=== PATIENT | female | born 1995 | race Caucasian/White ===

== ENCOUNTER 2019-05-21 09:52 | Outpatient (RCR) | payer BC ==
[2019-05-19] MEDS: IRON SUCROSE 200 MG/10 ML (VENOFER) VIAL IV SCH (10:25)
[2019-05-19 10:29] VITALS: BP 106/70
[~2019-05-21] VITALS: Ht 162 cm; Wt 72.7 kg
[~2019-05-21 09:52] MED LIST: DOXY100C2 PO; ESCI20TA PO; ESCI20TA45 PO; ETHI1TAB21 PO; IBUP-30 PO; IRON SUCROSE 200 MG/10 ML (VENOFER) VIAL IV ONE; LURA20TA PO; [UNRECOGNIZED DRUG - OTHER] PO
[2019-05-21] MEDS: IRON SUCROSE 200 MG/10 ML (VENOFER) VIAL IV SCH (10:01)
[2019-05-21 10:40] VITALS: BP 107/69
== END 2019-05-21 10:40 | disposition home or self-care (01) ==
LOC: SDC 09:52
PROVIDERS: ATTEND Internal Medicine
DX: E61.1 Iron deficiency (principal)
CPT/HCPCS: 96365

== ENCOUNTER → 2019-10-08 | Outpatient (CLI) | payer BC ==
[~2019-10-08] MED LIST changes: -IRON SUCROSE 200 MG/10 ML (VENOFER) VIAL IV ONE
== END ==
LOC: LABNPT 06:37
PROVIDERS: ATTEND Otolaryngology Otolaryngology/Facial Plastic Surgery
DX: G47.33 Obstructive sleep apnea (adult) (pediatric) (principal); Z20.828 Contact with and (suspected) exposure to other viral communicable diseases
CPT/HCPCS: 87635

== ENCOUNTER 2019-10-12 19:51 | Outpatient (CLI) | payer BC | END 2019-10-13 07:00 | disposition home or self-care (01) | LOC: SLEEP 19:51 | PROVIDERS: ATTEND Otolaryngology Otolaryngology/Facial Plastic Surgery | DX: G47.33 Obstructive sleep apnea (adult) (pediatric) (principal); G47.419 Narcolepsy without cataplexy; F41.9 Anxiety disorder, unspecified; F32.9 Major depressive disorder, single episode, unspecified | CPT/HCPCS: 95810 ==

== ENCOUNTER 2019-10-13 08:00 | Outpatient (CLI) | payer BC ==
[2019-10-14 10:19] LABS: AMPHETAMINE SCREEN, URINE NEGATIVE (NEGATIVE); BARBITURATE SCREEN URINE NEGATIVE (NEGATIVE); BENZODIAZEPINES SCREEN URINE NEGATIVE (NEGATIVE); CANNABINOID SCREEN, URINE NEGATIVE (NEGATIVE); COCAINE SCREEN URINE NEGATIVE (NEGATIVE); METHADONE STAT NEGATIVE (NEGATIVE); METHAMPHETAMINE SCREEN URINE S NEGATIVE (NEGATIVE); OPIATE SCREEN URINE NEGATIVE (NEGATIVE); OXYCODONE STAT NEGATIVE (NEGATIVE); PROPOXYPHENE STAT NEGATIVE (NEGATIVE); TRICYCLIC ANTIDEPRESSANTS SCRE NEGATIVE (NEGATIVE)
== END 2019-10-13 17:16 | disposition home or self-care (01) ==
LOC: SLEEP 08:00
PROVIDERS: ATTEND Otolaryngology Otolaryngology/Facial Plastic Surgery
DX: G47.33 Obstructive sleep apnea (adult) (pediatric) (principal); G47.419 Narcolepsy without cataplexy; G47.10 Hypersomnia, unspecified
CPT/HCPCS: 80306; 95805